=== PATIENT | male | born 1990 | race African-American/Black ===

== ENCOUNTER 2021-05-26 18:25 | Emergency (ER) | payer SELFPAY ==
[~2021-05-26] VITALS: Ht 177.8 cm; Wt 184.2 kg
== END 2021-05-26 18:49 | disposition home or self-care (01) ==
LOC: ER 18:32
DX: H60.91 Unspecified otitis externa, right ear (principal)
CPT/HCPCS: 99282

== ENCOUNTER 2021-07-26 17:21 | Emergency (ER) | payer SELFPAY ==
[~2021-07-26] VITALS: Ht 175.3 cm; Wt 184.2 kg
[2021-07-26] MEDS ORDERED: LIDOCAINE HCL 1% 2 ML AMP INJ NR (17:45)
[2021-07-26] MEDS ORDERED: BACTRIM DS TAB1 EACH PO (18:05)
[2021-07-26] MEDS ORDERED: KEFLEX125 MG/5 M PO ×2 (18:05→18:19)
[2021-07-26] MEDS ORDERED: IBUPROFEN600 MG PO (18:07)
[2021-07-26] MEDS ORDERED: CEPHALEXIN500 MG PO (18:20)
== END 2021-07-26 18:25 | disposition home or self-care (01) ==
LOC: ER 17:30
DX: L02.11 Cutaneous abscess of neck (principal)
CPT/HCPCS: 10061; 99283; J2001